=== PATIENT | female | born 1940 | race Caucasian/White ===

== ENCOUNTER 2022-07-16 16:11 | Observation (INO) | payer MEDICARE, MEDICAID ==
[~2022-07-16] VITALS: Ht 162.6 cm; Wt 52.3 kg
--- NOTE | 2022-07-16 16:16 | NUR ---
PATIENT TO [facility] BED VIA EMS
[2022-07-16 17:10] LABS: HEMATOCRIT 30.7 % (37.0-47.0); HEMOGLOBIN 9.4 g/dl (12.0-16.0); IMMATURE GRANULOCYTES 0.2 % (0.0-5.0); MEAN CORPUSCULAR HGB 30.6 pG CALC (26.0-32.0); MEAN CORPUSCULAR HGB CONC 30.6 g/dL CAL (32.0-36.0); NEUT# 4.56 thou/uL (2.00-7.15); RED BLOOD COUNT 3.07 mill/uL (4.20-5.60); RED CELL DISTRI WIDTH 15.6 % (11.5-15.5)
[2022-07-16 17:19] LABS: BILIRUBIN, TOTAL 0.5 mg/dL (0.0-1.4); POTASSIUM 4.6 mmol/l (3.5-5.1); TOTAL PROTEIN 6.8 g/dL (6.3-8.2)
[2022-07-16 17:21] LABS: CREATININE 7.2 mg/dL (0.5-1.0)
--- NOTE | 2022-07-16 17:50 | NUR ---
PATIENT IN NAD. PROVIDED BLANKET.
--- NOTE | 2022-07-16 18:29 | NUR ---
Reassessment of patient completed. No distress noted. PT GIVEN RENAL DIET
--- NOTE | 2022-07-16 18:44 | NUR ---
REASSESSED. NAD. VITALS CHECKED. CALL LIGHT IN REACH
--- NOTE | 2022-07-16 19:15 | NUR ---
PATIENT TO DIALYSIS
--- NOTE | 2022-07-17 02:00 | NUR ---
PRE-DIALYSIS NOTE: PRE-TX WEIGHT 52.3 KG PT A/0X3, PLEASANT AND COOPERATIVE. RESPIRATIONS REGULAR AND UNLABORED. AFIB ON TELEMETRY. LUNGS CLEAR. VS STABLE. NO GROSS EDEMA NOTED. VOICES NO COMPLAINTS OR NEEDS AT THIS TIME. LABS REVIEWED, CONSENT SIGNED BY PT AND PHYSICIAN. ORDERS RECEIVED FROM DR. CHEATHAM. EDUCATION PROVIDED ON HD. NIBP 168/88 97bpm 17RR/MIN 97.8F LUE AVG +THRILL +BRUIT, CANNULATED WITH 15G NEEDLE W/O DIFFICULTY. PT TOLERATED WELL. HD TX STARTED @ 0158.
--- NOTE | 2022-07-17 05:35 | NUR ---
POST DIALYSIS: DIALYSIS TX COMPLETED AT 0532. PT TOLERATED HEMODIALYSIS TX. DURATION 2 HOURS. 2,000ML REMOVED. LUE AVG +THRILL + BRUIT POST DE-CANNULATION. FIRM PRESSURE HELD UNTIL BLEEDING STOPPED AND DRY DRESSING SECURED OVER TOP WITH PAPER TAPE. NIBP 157/78mmHg 86bpm 97.8F POST DIALYSIS WEIGHT: 51.8 KG
[2022-07-17 05:46] LABS: HEMATOCRIT 30.8 % (37.0-47.0); HEMOGLOBIN 9.7 g/dl (12.0-16.0); IMMATURE GRANULOCYTES 0.2 % (0.0-5.0); MEAN CELL VOLUME 97.5 fL CALC (80.0-100.0); MEAN CORPUSCULAR HGB 30.7 pG CALC (26.0-32.0); MEAN CORPUSCULAR HGB CONC 31.5 g/dL CAL (32.0-36.0); NEUT# 3.68 thou/uL (2.00-7.15); RED BLOOD COUNT 3.16 mill/uL (4.20-5.60); RED CELL DISTRI WIDTH 15.5 % (11.5-15.5)
--- NOTE | 2022-07-17 07:30 | NUR ---
awake; no distress noted; will continue to monitor
--- NOTE | 2022-07-17 08:30 | NUR ---
pt awake and alert in no distress. given hot breakfast tray. pt states she is ready to go to the half-way this am. updated on poc.
[2022-07-17 09:00] VITALS: BP 152/85
--- NOTE | 2022-07-17 09:00 | NUR ---
pt awake sitting at the side of the bed; bed NOT locked, required a coronel to lock; pt assisted to recliner for pt safety; pt offers no complaints; no apparent distress noted; denies pain; resp even and unlabored; lungs clear; skin color wnl; ra; hr irreg; pt admits to afib; strong pulses; no edema noted; tele monitor intact; abd soft with bs present; no bm noted per mortgage or loan underwriter; no urine to inspect; plan of care explained; pt anxious to leave; will continue to monitor
--- NOTE | 2022-07-17 09:25 | NUR ---
received call from ER; pt reading afib 140-150s; pt in bathroom at this time brushing her teeth; pt excorted per this underwriter mortgage loan back to recliner; settled; HR noted 90s; ER Guru notified; pt states that's normal for her; will continue to monitor
--- NOTE | 2022-07-17 10:21 | NUR ---
Patient decides to leave AMA. Explained to patient all risks of leaving against medical advice including . Pt verbalized understanding of all risks. Pt also encouraged to return to [facility] at any time, especially if symptoms continue or become worse. Pt verbalized understanding.
[2022-07-17 10:38] LABS: ALBUMIN 4.1 g/dL (3.2-5.0); BILIRUBIN, TOTAL 0.6 mg/dL (0.0-1.4); MAGNESIUM 2.1 mg/dL (1.6-2.3); POTASSIUM 4.4 mmol/l (3.5-5.1); TOTAL PROTEIN 6.7 g/dL (6.3-8.2)
[2022-07-17 11:06] LABS: CREATININE 3.7 mg/dL (0.5-1.0)
== END 2022-07-17 10:21 | disposition left against medical advice (07) ==
LOC: ED 16:11 → ED-I 17:00 → ANR-I 17:29 → ED 17:29 → ANR-I 18:32
PROVIDERS: Family Medicine; Internal Medicine; ADMIT Internal Medicine; ATTEND Internal Medicine
PROC: 5A1D70Z Performance of Urinary Filtration, Intermittent, Less than 6 Hours Per Day (ICD-10-PCS; principal; 2022-07-17)
DX: I12.0 Hypertensive chronic kidney disease with stage 5 chronic kidney disease or end stage renal disease (principal); N18.6 End stage renal disease; Z99.2 Dependence on renal dialysis; E78.5 Hyperlipidemia, unspecified; N25.81 Secondary hyperparathyroidism of renal origin; D63.1 Anemia in chronic kidney disease; Z85.528 Personal history of other malignant neoplasm of kidney; Z59.1 Inadequate housing

== ENCOUNTER 2022-07-19 10:00 | Observation (INO) | payer MEDICARE, MEDICAID ==
[~2022-07-19] VITALS: Ht 162.6 cm; Wt 52.8 kg
--- NOTE | 2022-07-19 10:15 | NUR ---
PATIENT AWARE OF WAIT TIME. SHE IS RESTING COMFORTABLY IN WHEELCHAIR IN WAITITNG ROOM .
[2022-07-19 10:37] LABS: HEMATOCRIT 35.6 % (37.0-47.0); HEMOGLOBIN 10.9 g/dl (12.0-16.0); MEAN CELL VOLUME 98.9 fL CALC (80.0-100.0); MEAN CORPUSCULAR HGB 30.3 pG CALC (26.0-32.0); MEAN CORPUSCULAR HGB CONC 30.6 g/dL CAL (32.0-36.0); NEUT# 3.67 thou/uL (2.00-7.15); RED BLOOD COUNT 3.6 mill/uL (4.20-5.60); RED CELL DISTRI WIDTH 15.2 % (11.5-15.5)
[2022-07-19 10:58] LABS: ALBUMIN 4.2 g/dL (3.2-5.0); BILIRUBIN, TOTAL 0.5 mg/dL (0.0-1.4); POTASSIUM 4.7 mmol/l (3.5-5.1)
--- NOTE | 2022-07-19 11:15 | NUR ---
PT TO ROOM VIA WHEELCHAIR. SHE IS AWARE OF WAIT TIME. CALL ANGEL WITHIN REACH.
--- NOTE | 2022-07-19 12:15 | NUR ---
patient aware of pending admission and wait time. fed lunch tray.
[2022-07-19] MEDS ORDERED: DULOXETINE HCL60 MG PO (12:45)
[2022-07-19] MEDS ORDERED: METOPROL TAR25 MG PO (12:45)
[2022-07-19] MEDS ORDERED: ELIQUIS2.5 MG PO (12:48)
[2022-07-19] MEDS ORDERED: CINACALCET HYDR30 MG PO (12:48)
[2022-07-19] MEDS ORDERED: CRESTOR10 MG PO (12:49)
[2022-07-19] MEDS ORDERED: DILTIAZEM60 MG PO (12:49)
[2022-07-19] MEDS ORDERED: LEVOTHYROXIN125 MCG PO (12:50)
[2022-07-19] MEDS ORDERED: RENAGEL800 MG PO (12:51)
[2022-07-19] MEDS ORDERED: TRAZODONE50 MG PO (12:51)
--- NOTE | 2022-07-19 13:15 | NUR ---
patient aware of continued wait time.
--- NOTE | 2022-07-19 14:00 | NUR ---
PATIENT REMAINS IN SAME ROOM FOR ADMISSION. PATIENT RESTING IN STRETCHER IN NAD AND DENIES ANY NEEDS. SHE IS AWARE OF PLAN FOR DIALYSIS.
--- NOTE | 2022-07-19 14:00 | NUR ---
patient admitted for dialysis.
[2022-07-19 14:30] VITALS: BP 148/63
--- NOTE | 2022-07-19 20:15 | NUR ---
patient decides to leave AMA. Multiple attempts made to ecourage patient to remain here for continued treatment. Explained to patient all risks of leaving against medical advice including . Pt verbalized understanding of all risks. Pt also encouraged to return to [facility] at any time, especially if symptoms continue or become worse. Pt verbalized understanding. Pt leaves ambulatory in no distress with escort to return to [facility]
== END 2022-07-19 20:30 | disposition left against medical advice (07) ==
LOC: ED 10:00 → ANR-I 10:59 → ED 10:59 → WW 10:59 → ANR-I 12:00 → WW 13:59 → ANR-I 14:00 → WW 14:00 → ANR-I 20:30
PROVIDERS: Family Medicine; ADMIT Internal Medicine; ATTEND Internal Medicine
PROC: 5A1D70Z Performance of Urinary Filtration, Intermittent, Less than 6 Hours Per Day (ICD-10-PCS; principal; 2022-07-19)
DX: I12.0 Hypertensive chronic kidney disease with stage 5 chronic kidney disease or end stage renal disease (principal); N18.6 End stage renal disease; Z99.2 Dependence on renal dialysis; N25.81 Secondary hyperparathyroidism of renal origin; D63.1 Anemia in chronic kidney disease; I48.91 Unspecified atrial fibrillation; E78.5 Hyperlipidemia, unspecified; F32.A Depression, unspecified; Z85.528 Personal history of other malignant neoplasm of kidney; Z79.01 Long term (current) use of anticoagulants

== ENCOUNTER 2022-09-20 15:26 | Observation (INO) | payer MEDICARE ==
[~2022-09-20] VITALS: Ht 162.6 cm; Wt 53.2 kg
[~2022-09-20 15:26] MED LIST: CINACALCET HYDR30 MG PO; CRESTOR10 MG PO; DILTIAZEM60 MG PO; DULOXETINE HCL60 MG PO; ELIQUIS2.5 MG PO; LEVOTHYROXIN125 MCG PO; METOPROL TAR25 MG PO; RENAGEL800 MG PO; TRAZODONE50 MG PO
[2022-09-20 16:41] LABS: IMMATURE GRANULOCYTES 0.2 % (0.0-5.0); MEAN CORPUSCULAR HGB 32.1 pG CALC (26.0-32.0); MEAN CORPUSCULAR HGB CONC 31.1 g/dL CAL (32.0-36.0); NEUT# 7.03 thou/uL (2.00-7.15); RED BLOOD COUNT 2.37 mill/uL (4.20-5.60)
[2022-09-20 16:42] LABS: HEMATOCRIT 24.4 % (37.0-47.0); HEMOGLOBIN 7.6 g/dl (12.0-16.0)
[2022-09-20 16:59] LABS: ALBUMIN 4.3 g/dL (3.2-5.0); TOTAL PROTEIN 7.4 g/dL (6.3-8.2)
[2022-09-20 17:08] LABS: BILIRUBIN, TOTAL 1.3 mg/dL (0.0-1.4); CREATININE 3.2 mg/dL (0.5-1.0); POTASSIUM 3.7 mmol/l (3.5-5.1)
[2022-09-20 21:38] VITALS: BP 147/71
[2022-09-21] VITALS (23 sets, daily range): BP systolic 105–140; BP diastolic 44–90
[2022-09-21 05:54] LABS: HEMATOCRIT 22.1 % (37.0-47.0); MEAN CELL VOLUME 104.7 fL CALC (80.0-100.0); MEAN CORPUSCULAR HGB 31.8 pG CALC (26.0-32.0); MEAN CORPUSCULAR HGB CONC 30.3 g/dL CAL (32.0-36.0); RED BLOOD COUNT 2.11 mill/uL (4.20-5.60); RED CELL DISTRI WIDTH 19.5 % (11.5-15.5)
[2022-09-21 05:59] LABS: HEMOGLOBIN 6.7 g/dl (12.0-16.0)
[2022-09-21 06:00] LABS: INTERNATIONAL NORMALIZED RATIO 1.3 RATIO (0.7-1.3)
[2022-09-21 06:06] LABS: MAGNESIUM 2.1 mg/dL (1.6-2.3); POTASSIUM 3.9 mmol/l (3.5-5.1)
[2022-09-22 00:22] VITALS: BP 147/72
[2022-09-22 04:12] VITALS: BP 149/73
[2022-09-22 06:01] LABS: HEMATOCRIT 26.4 % (37.0-47.0); HEMOGLOBIN 8.2 g/dl (12.0-16.0); IMMATURE GRANULOCYTES 0.3 % (0.0-5.0); MEAN CELL VOLUME 101.9 fL CALC (80.0-100.0); MEAN CORPUSCULAR HGB 31.7 pG CALC (26.0-32.0); MEAN CORPUSCULAR HGB CONC 31.1 g/dL CAL (32.0-36.0); NEUT# 5.89 thou/uL (2.00-7.15); RED BLOOD COUNT 2.59 mill/uL (4.20-5.60); RED CELL DISTRI WIDTH 20.1 % (11.5-15.5)
[2022-09-22 06:15] LABS: POTASSIUM 4.5 mmol/l (3.5-5.1)
[2022-09-22 06:31] LABS: ALBUMIN 3.3 g/dL (3.2-5.0); CREATININE 5.6 mg/dL (0.5-1.0)
[2022-09-22 06:53] VITALS: BP 126/76
[2022-09-22 14:14] VITALS: BP 133/76
[2022-09-22 15:42] VITALS: BP 155/70
[2022-09-22 19:11] VITALS: BP 142/67
[2022-09-23] VITALS: BP 149/69
[2022-09-23 04:38] VITALS: BP 148/79
[2022-09-23 05:57] LABS: HEMATOCRIT 26.1 % (37.0-47.0); HEMOGLOBIN 8.2 g/dl (12.0-16.0); MEAN CORPUSCULAR HGB CONC 31.4 g/dL CAL (32.0-36.0); RED BLOOD COUNT 2.56 mill/uL (4.20-5.60); RED CELL DISTRI WIDTH 19.6 % (11.5-15.5)
[2022-09-23 06:16] LABS: ALBUMIN 3.3 g/dL (3.2-5.0); POTASSIUM 4.3 mmol/l (3.5-5.1)
[2022-09-23 06:21] LABS: CREATININE 3.9 mg/dL (0.5-1.0)
[2022-09-23 06:48] VITALS: BP 158/74
[2022-09-23 10:44] VITALS: BP 137/56
[2022-09-23] MEDS ORDERED: VIBRAMYCIN100 M2 PO (11:50)
[2022-09-23] MEDS ORDERED: LORTAB5 PO (11:51)
== END 2022-09-23 14:50 | disposition home or self-care (01) ==
LOC: ED 15:26 → ED-I 18:20 → ED 18:49 → MS2 18:49
PROVIDERS: Family Medicine; Internal Medicine; Internal Medicine Nephrology; ADMIT Internal Medicine; ATTEND Internal Medicine
PROC: 0JCN0ZZ Extirpation of Matter from Right Lower Leg Subcutaneous Tissue and Fascia, Open Approach (ICD-10-PCS; principal; 2022-09-21)
PROC: 30233N1 Transfusion of Nonautologous Red Blood Cells into Peripheral Vein, Percutaneous Approach (ICD-10-PCS; 2022-09-21)
PROC: 5A1D70Z Performance of Urinary Filtration, Intermittent, Less than 6 Hours Per Day (ICD-10-PCS; 2022-09-22)
DX: S80.11XA Contusion of right lower leg, initial encounter (principal); L03.115 Cellulitis of right lower limb; I12.0 Hypertensive chronic kidney disease with stage 5 chronic kidney disease or end stage renal disease; N18.6 End stage renal disease; D63.1 Anemia in chronic kidney disease; N25.81 Secondary hyperparathyroidism of renal origin; I48.91 Unspecified atrial fibrillation; E03.9 Hypothyroidism, unspecified; E78.5 Hyperlipidemia, unspecified; W19.XXXA Unspecified fall, initial encounter; Y92.009 Unspecified place in unspecified non-institutional (private) residence as the place of occurrence of the external cause; Z85.528 Personal history of other malignant neoplasm of kidney; Z79.01 Long term (current) use of anticoagulants; Z99.2 Dependence on renal dialysis; Z20.822 Contact with and (suspected) exposure to COVID-19
CPT/HCPCS: J1644; P9016

== ENCOUNTER 2023-10-17 07:46 | Emergency (ER) | payer MEDICARE ==
[2023-10-17] VITALS (27 sets, daily range): BP systolic 141–224; BP diastolic 61–120
[~2023-10-17] VITALS: Ht 165.1 cm; Wt 70.0 kg
[~2023-10-17 07:46] MED LIST changes: +CLARITIN10 M1 PO; +COLACE100 MG PO; +CORDARONE/200 MG/TAB PO; +DOXAZOSIN2 M1 PO; +LORTAB5 PO; +VIBRAMYCIN100 M2 PO
[2023-10-17 08:56] LABS: BASO% 0.4 % (0-3); EOS% 0.1 % (0-8); HEMATOCRIT 36.3 % (37.0-47.0); HEMOGLOBIN 11.4 g/dl (12.0-16.0); IMMATURE GRANULOCYTES 0.9 % (0.0-5.0); LYMPH% 1.6 % (15-41); MEAN CELL VOLUME 100.3 fL CALC (80.0-100.0); MEAN CORPUSCULAR HGB 31.5 pG CALC (26.0-32.0); MEAN CORPUSCULAR HGB CONC 31.4 g/dL CAL (32.0-36.0); NEUT# 9.54 thou/uL (2.00-7.15); RED BLOOD COUNT 3.62 mill/uL (4.20-5.60); RED CELL DISTRI WIDTH 14.7 % (11.5-15.5)
[2023-10-17 09:09] LABS: ALBUMIN 4.5 g/dL (3.2-5.0); BILIRUBIN, TOTAL 0.6 mg/dL (0.02-1.3); TOTAL PROTEIN 7.4 g/dL (6.3-8.2)
[2023-10-17 09:16] LABS: INTERNATIONAL NORMALIZED RATIO 1.1 RATIO (0.7-1.3); PROTHROMBIN TIME 10.9 SECONDS (9.0-12.5)
[2023-10-17 09:20] LABS: CREATININE 8.2 mg/dL (0.5-1.0); POTASSIUM 5.9 mmol/l (3.5-5.1)
[2023-10-17] MEDS ORDERED: METOPROLOL TART50 MG PO (13:02)
[2023-10-17] MEDS ORDERED: PROPAFENONE150 MG PO (13:03)
== END 2023-10-17 13:28 | disposition short-term general hospital (02) ==
LOC: ED 07:46
PROVIDERS: Emergency Medicine
DX: R55 Syncope and collapse (principal); I13.2 Hypertensive heart and chronic kidney disease with heart failure and with stage 5 chronic kidney disease, or end stage renal disease; N18.6 End stage renal disease; I50.9 Heart failure, unspecified; I48.91 Unspecified atrial fibrillation; Z99.2 Dependence on renal dialysis; Z95.0 Presence of cardiac pacemaker; Z85.528 Personal history of other malignant neoplasm of kidney; Z91.81 History of falling